=== PATIENT | female | born 1950 | race Caucasian/White ===

== ENCOUNTER 2017-02-09 14:32 | Inpatient (IN) | payer OTHER ==
[~2017-02-09] VITALS: Ht 162.6 cm; Wt 85.4 kg
[~2017-02-09 14:32] MED LIST: AMBIEN10 MG PO; ASPIR-LOW81 MG PO; ASPIRIN81 M2 PO; BENADRYL25 MG PO; BOTOX100 UNITS IJ; BUTALB-ACETAMI1 EAC2 PO; CALCIUM 500 WI1 EAC2 PO; CALCIUM 600 +1 EACH PO; CALTRATE 600 +1 EAC1 PO; CALTRATE 600600 MG PO; CELEXA40 MG PO; COLACE100 MG PO; CYMBALTA20 MG PO; DICLOFENAC POTA50 MG PO; EXCEDRIN MIGRA1 EAC3 PO; FAMOTIDINE20 MG PO; FIORICET 50-301 EACH PO; IRON325 MG PO; LIPITOR20 MG PO; LITE COAT ASPI325 M1 PO; LOPID600 MG PO; LORTAB 5-325 M1 EACH PO; MELOXICAM15 MG PO; METOPROLOL SUCC25 MG PO; MYSOLINE250 MG PO; NORVASC10 MG PO; NORVASC5 MG PO; PANTOPRAZOLE SO40 MG PO; PERCOCET 5/31 TABLET PO; PLAVIX75 MG PO; PRAVASTATIN SOD80 MG PO; PROTONIX40 MG PO; ROXICODONE5 MG PO; SENNA-TIME S T1 EACH PO; SENTRA AM CAPS1 EACH PO; TOPAMAX50 MG PO; TOPIRAMATE50 MG PO; TOPROL XL25 MG PO; TRAZODONE HCL50 MG PO; WELCHOL625 MG PO
[2017-02-09 15:21] LABS: MCH 31.6 PG (29.0-34.0); MCHC 32.5 G/DL (30.0-36.0); MCV 97.3 FL (83-99); MEAN PLAT.VOLUME 10.6 uM^3 (9.5-12.4); PLATELET COUNT 191 K/uL (156-360); RBC DIS.WIDTH-CV 14.5 % (11.8-14.6); RBC DIS.WIDTH-SD 52.3 % (39-53); RED BLOOD COUNT 4.11 M/uL (3.80-5.20)
[2017-02-09 15:31] LABS: CHLORIDE 107 mEq/L (99-109); POTASSIUM 3.8 mEq/L (3.7-5.4); SODIUM 139 mEq/L (136-147)
[2017-02-09 15:33] LABS: GLUCOSE 183 mg/dL (70-99)
[2017-02-09 15:34] LABS: ANION GAP 16 MEQ/L (2-14)
[2017-02-09 15:37] LABS: GFR ESTIMATE (CALCULATED) > 59 mL/min/
[2017-02-09 15:38] LABS: UREA NITROGEN (BUN) 12 mg/dL (9-23)
[2017-02-09 17:31] LABS: TROP-I INTERPRETATION NEGATIVE; TROPONIN-I < 0.01 ng/mL (0.0-0.30)
[2017-02-09] MEDS ORDERED: PROTONIX40 MG PO (17:32)
[2017-02-09] MEDS ORDERED: NUEDEXTA 20-101 EACH PO (17:33)
[2017-02-09] MEDS ORDERED: PLAVIX75 MG PO (17:33)
[2017-02-09] MEDS ORDERED: CRESTOR5 MG PO (17:34)
[2017-02-09] MEDS ORDERED: FIORICET 50-301 EACH PO (17:35)
[2017-02-09] MEDS ORDERED: B-121000 MC2 PO (17:35)
[2017-02-09] MEDS ORDERED: DESYREL100 MG PO (17:36)
[2017-02-09 20:05] VITALS: BP 141/66
[2017-02-09 23:26] LABS: TROP-I INTERPRETATION NEGATIVE; TROPONIN-I < 0.01 ng/mL (0.0-0.30)
[2017-02-10] VITALS (7 sets, daily range): BP systolic 118–176; BP diastolic 58–83
[2017-02-10 06:19] LABS: HEMATOCRIT 36.3 % (36.0-46.0); MCH 31.8 PG (29.0-34.0); MCV 99.5 FL (83-99); MEAN PLAT.VOLUME 10.7 uM^3 (9.5-12.4); PLATELET COUNT 171 K/uL (156-360); RBC DIS.WIDTH-CV 14.6 % (11.8-14.6); RBC DIS.WIDTH-SD 53.7 % (39-53); RED BLOOD COUNT 3.65 M/uL (3.80-5.20); WHITE BLOOD COUNT 9.5 K/uL (4.1-10.2)
[2017-02-10 06:34] LABS: TROP-I INTERPRETATION NEGATIVE; TROPONIN-I < 0.01 ng/mL (0.0-0.30)
[2017-02-10 06:46] LABS: ANION GAP 10 MEQ/L (2-14); CHLORIDE 110 MEQ/L (99-109); GFR ESTIMATE (CALCULATED) > 59 mL/min/; GLUCOSE 131 mg/dL (70-99); SAMPLE HEMOLYSIS CHECK 0; SAMPLE ICTERIC CHECK 0; SAMPLE LIPEMIA CHECK 0; SODIUM 140 MEQ/L (136-147); UREA NITROGEN (BUN) 11 mg/dL (9-23)
[2017-02-10 17:55] LABS: TROP-I INTERPRETATION NEGATIVE; TROPONIN-I < 0.01 ng/mL (0.0-0.30)
[2017-02-11 00:16] LABS: CHLORIDE 112 mEq/L (99-109); POTASSIUM 3.6 mEq/L (3.7-5.4); SODIUM 140 mEq/L (136-147)
[2017-02-11 00:17] LABS: GLUCOSE 155 mg/dL (70-99)
[2017-02-11 00:19] LABS: ANION GAP 12 MEQ/L (2-14)
[2017-02-11 00:21] LABS: GFR ESTIMATE (CALCULATED) > 59 mL/min/
[2017-02-11 00:22] LABS: UREA NITROGEN (BUN) 10 mg/dL (9-23)
[2017-02-11 01:48] VITALS: BP 148/80
[2017-02-11 06:19] VITALS: BP 137/69
[2017-02-11 07:30] VITALS: BP 180/82
[2017-02-11 11:22] VITALS: BP 158/72
[2017-02-11 15:50] VITALS: BP 148/64
[2017-02-11 23:06] VITALS: BP 143/63
[2017-02-12 04:17] LABS: ADD MIUA? YES; BILIRUBIN NEGATIVE; BLOOD MODERATE; COLOR YELLOW ((YELLOW)); GLUCOSE (STRIP) NEGATIVE; KETONES NEGATIVE; LEUKOCYTES TRACE; NITRITE NEGATIVE; PROTEIN (STRIP) NEGATIVE; SPECIFIC GRAVITY 1.016 (1.000-1.030); UROBILINOGEN 0.2 MG/DL (0.2-1.0)
[2017-02-12 04:44] LABS: RED BLOOD CELLS 15-20 /HPF (0-5)
[2017-02-12 04:45] LABS: BACTERIA 1+ /HPF; CASTS PRESENT /LPF; CRYSTALS NONE SEEN; EPITHELIAL CELLS 1+ /HPF; MUCUS 1+ /LPF
[2017-02-12 04:47] LABS: HYALINE CASTS RARE /LPF
[2017-02-12 07:07] LABS: ANION GAP 10 MEQ/L (2-14); CHLORIDE 109 MEQ/L (99-109); GFR ESTIMATE (CALCULATED) > 59 mL/min/; GLUCOSE 142 mg/dL (70-99); POTASSIUM 4.1 MEQ/L (3.7-5.4); SAMPLE HEMOLYSIS CHECK 0; SAMPLE ICTERIC CHECK 0; SAMPLE LIPEMIA CHECK 0; SODIUM 141 MEQ/L (136-147); UREA NITROGEN (BUN) 6 mg/dL (9-23)
[2017-02-12 07:10] VITALS: BP 170/77
[2017-02-12 15:25] VITALS: BP 180/81
[2017-02-12 23:17] VITALS: BP 185/85
[2017-02-13 06:28] VITALS: BP 160/100
[2017-02-13 08:21] VITALS: BP 156/76
[2017-02-13 16:34] VITALS: BP 149/69
[2017-02-13 23:06] VITALS: BP 169/78
[2017-02-14 07:31] VITALS: BP 172/79
[2017-02-14 16:21] VITALS: BP 187/79
[2017-02-15] VITALS: BP 173/79
[2017-02-15 06:17] LABS: HEMATOCRIT 38.2 % (36.0-46.0); MCH 31.2 PG (29.0-34.0); MCHC 31.2 G/DL (30.0-36.0); MEAN PLAT.VOLUME 10.2 uM^3 (9.5-12.4); PLATELET COUNT 215 K/uL (156-360); RBC DIS.WIDTH-CV 14.7 % (11.8-14.6); RBC DIS.WIDTH-SD 54.6 % (39-53); RED BLOOD COUNT 3.82 M/uL (3.80-5.20); WHITE BLOOD COUNT 8.1 K/uL (4.1-10.2)
[2017-02-15 06:48] LABS: ANION GAP 10 MEQ/L (2-14); CHLORIDE 106 MEQ/L (99-109); GFR ESTIMATE (CALCULATED) > 59 mL/min/; GLUCOSE 132 mg/dL (70-99); POTASSIUM 4.1 MEQ/L (3.7-5.4); SAMPLE HEMOLYSIS CHECK 0; SAMPLE ICTERIC CHECK 0; SAMPLE LIPEMIA CHECK 0; SODIUM 140 MEQ/L (136-147); UREA NITROGEN (BUN) 15 mg/dL (9-23)
[2017-02-15 08:37] VITALS: BP 157/71
[2017-02-15] MEDS ORDERED: ADVAIR HFA120 INHALA IH (12:49)
== END 2017-02-15 15:17 | DRG 190 ==
LOC: EME 14:32 → EDOF 17:01 → 5EAST 17:01 → ENRESERV 17:07 → 5EAST 19:48
PROVIDERS: Emergency Medicine; Family Medicine; Hospitalist; Internal Medicine
DX: J44.1 Chronic obstructive pulmonary disease with (acute) exacerbation (principal); G93.49 Other encephalopathy; T17.820A Food in other parts of respiratory tract causing asphyxiation, initial encounter; I67.3 Progressive vascular leukoencephalopathy; I69.351 Hemiplegia and hemiparesis following cerebral infarction affecting right dominant side; F33.9 Major depressive disorder, recurrent, unspecified; J98.11 Atelectasis; F05 Delirium due to known physiological condition; J44.0 Chronic obstructive pulmonary disease with (acute) lower respiratory infection; J20.9 Acute bronchitis, unspecified; R13.10 Dysphagia, unspecified; E78.5 Hyperlipidemia, unspecified; I10 Essential (primary) hypertension; E87.6 Hypokalemia; G43.909 Migraine, unspecified, not intractable, without status migrainosus; F02.80 Dementia in other diseases classified elsewhere, unspecified severity, without behavioral disturbance, psychotic disturbance, mood disturbance, and anxiety; F41.9 Anxiety disorder, unspecified; G40.909 Epilepsy, unspecified, not intractable, without status epilepticus; E66.9 Obesity, unspecified; R45.1 Restlessness and agitation; F60.0 Paranoid personality disorder; I27.29 Other secondary pulmonary hypertension; I34.0 Nonrheumatic mitral (valve) insufficiency; Z88.5 Allergy status to narcotic agent; Z88.1 Allergy status to other antibiotic agents; I69.391 Dysphagia following cerebral infarction; Z87.11 Personal history of peptic ulcer disease; Z87.440 Personal history of urinary (tract) infections; Z68.32 Body mass index [BMI] 32.0-32.9, adult
CPT/HCPCS: 71010; 71020; 71275; 74230; 80048; 80048 91; 81003; 83605; 83880; 84484; 85027; 85379; 87040; 87493; 92526 GN; 92610 GN; 92611 GN; 93005; 94640; 94640 76; 94760; 94799; 97530 GO; 99202; 99281; 99284; J0456; J1650; J1885; J1956; J2930; J7030; J7042; S0028

== ENCOUNTER → 2017-03-02 | Outpatient (CLI) | payer OTHER ==
[~2017-03-02] MED LIST changes: +ADVAIR HFA120 INHALA IH; +B-121000 MC2 PO; +CRESTOR5 MG PO; +DESYREL100 MG PO; +NUEDEXTA 20-101 EACH PO
== END ==
LOC: RAD 15:00
DX: R13.13 Dysphagia, pharyngeal phase (principal); R13.11 Dysphagia, oral phase
CPT/HCPCS: 74230; 92611 GN; G8996 GN CJ; G8997 GN CJ; G8998 GN CJ

== ENCOUNTER 2017-05-16 11:43 | Observation (INO) | payer OTHER ==
[~2017-05-16] VITALS: Ht 160 cm; Wt 96.9 kg
[2017-05-16] MEDS ORDERED: NAMENDA5 MG PO (17:07)
[2017-05-16] MEDS ORDERED: CRESTOR20 MG PO (17:10)
[2017-05-16] MEDS ORDERED: OCEAN NASAL 0.645 ML BOTH NARES (17:11)
[2017-05-16] MEDS ORDERED: ADVAIR 250/501 DISK IH (17:11)
[2017-05-16 18:01] LABS: CHLORIDE 107 mEq/L (99-109); POTASSIUM 3.9 mEq/L (3.7-5.4); SODIUM 139 mEq/L (136-147)
[2017-05-16 18:02] LABS: GLUCOSE 171 mg/dL (70-99)
[2017-05-16 18:06] LABS: CREATININE 0.8 mg/dL (0.6-1.3); GFR ESTIMATE (CALCULATED) > 59 mL/min/
[2017-05-16 18:07] LABS: UREA NITROGEN (BUN) 12 mg/dL (9-23)
[2017-05-16 18:09] LABS: CREATINE KINASE 43 IU/L (1-294)
[2017-05-16 19:52] VITALS: BP 139/64
[2017-05-17 09:40] VITALS: BP 112/69
[2017-05-17 11:34] VITALS: BP 139/67
[2017-05-17 15:24] VITALS: BP 142/67
[2017-05-17 19:00] VITALS: BP 123/68
[2017-05-18] VITALS: BP 138/74
[2017-05-18 04:00] VITALS: BP 160/76
[2017-05-18 07:25] VITALS: BP 176/83
[2017-05-18 10:38] LABS: HEMATOCRIT 38.9 % (36.0-46.0); HEMOGLOBIN 12.7 G/DL (11.9-15.5); MCH 31.8 PG (29.0-34.0); MCHC 32.6 G/DL (30.0-36.0); MCV 97.5 FL (83-99); PLATELET COUNT 188 K/uL (156-360); RBC DIS.WIDTH-CV 14.8 % (11.8-14.6); RBC DIS.WIDTH-SD 53.1 % (39-53); RED BLOOD COUNT 3.99 M/uL (3.80-5.20); WHITE BLOOD COUNT 9.1 K/uL (4.1-10.2)
[2017-05-18 11:03] LABS: CHLORIDE 104 MEQ/L (99-109); CREATININE 0.7 MG/DL (0.6-1.3); GFR ESTIMATE (CALCULATED) > 59 mL/min/; GLUCOSE 181 mg/dL (70-99); POTASSIUM 4.4 MEQ/L (3.7-5.4); SODIUM 136 MEQ/L (136-147); UREA NITROGEN (BUN) 17 mg/dL (9-23)
[2017-05-18 11:46] VITALS: BP 159/80
[2017-05-18 16:15] VITALS: BP 148/65
[2017-05-18 20:00] VITALS: BP 182/98
[2017-05-19 01:46] VITALS: BP 190/93
[2017-05-19 07:58] VITALS: BP 174/90
[2017-05-19 10:04] LABS: HEMATOCRIT 40.8 % (36.0-46.0); HEMOGLOBIN 13.4 G/DL (11.9-15.5); MCH 31.8 PG (29.0-34.0); MCHC 32.8 G/DL (30.0-36.0); MCV 96.7 FL (83-99); PLATELET COUNT 242 K/uL (156-360); RBC DIS.WIDTH-CV 15.1 % (11.8-14.6); RBC DIS.WIDTH-SD 53.1 % (39-53); RED BLOOD COUNT 4.22 M/uL (3.80-5.20); WHITE BLOOD COUNT 12.6 K/uL (4.1-10.2)
[2017-05-19 10:18] LABS: CHLORIDE 105 MEQ/L (99-109); CREATININE 0.7 MG/DL (0.6-1.3); GFR ESTIMATE (CALCULATED) > 59 mL/min/; GLUCOSE 208 mg/dL (70-99); POTASSIUM 4.2 MEQ/L (3.7-5.4); SODIUM 138 MEQ/L (136-147); UREA NITROGEN (BUN) 17 mg/dL (9-23)
[2017-05-19 11:03] LABS: APPEARANCE CLEAR ((CLEAR)); BILIRUBIN NEGATIVE; BLOOD LARGE; COLOR YELLOW ((YELLOW)); GLUCOSE (STRIP) NEGATIVE; KETONES NEGATIVE; LEUKOCYTES NEGATIVE; NITRITE NEGATIVE; PROTEIN (STRIP) 100; SPECIFIC GRAVITY 1.016 (1.000-1.030); UROBILINOGEN 0.2 MG/DL (0.2-1.0)
[2017-05-19 11:12] LABS: BACTERIA NONE SEEN /HPF; EPITHELIAL CELLS RARE /HPF; MUCUS TRACE /LPF; RED BLOOD CELLS TNTC /HPF (0-5); UCUL ADDED? YES; WHITE BLOOD CELLS 0-5 /HPF (0-5)
[2017-05-19 11:25] VITALS: BP 133/61
[2017-05-19] MEDS ORDERED: ULTRAM50 MG PO (16:35)
== END 2017-05-19 14:21 ==
LOC: EME 11:43 → EDOF 16:22 → 5WEST 16:22 → ENRESERV 16:30 → 5WEST 17:58
PROVIDERS: Internal Medicine; Nurse Practitioner Family
PROC: 2W3RX2Z Immobilization of Left Lower Leg using Cast (ICD-10-PCS; principal; 2017-05-18)
DX: S82.832A Other fracture of upper and lower end of left fibula, initial encounter for closed fracture (principal); R26.89 Other abnormalities of gait and mobility; I10 Essential (primary) hypertension; E78.5 Hyperlipidemia, unspecified; I69.351 Hemiplegia and hemiparesis following cerebral infarction affecting right dominant side; D72.829 Elevated white blood cell count, unspecified; R44.3 Hallucinations, unspecified; R33.9 Retention of urine, unspecified; Z87.440 Personal history of urinary (tract) infections; F32.9 Major depressive disorder, single episode, unspecified; G43.909 Migraine, unspecified, not intractable, without status migrainosus; G40.909 Epilepsy, unspecified, not intractable, without status epilepticus; Z87.11 Personal history of peptic ulcer disease; G89.29 Other chronic pain; F41.9 Anxiety disorder, unspecified; Z88.1 Allergy status to other antibiotic agents; Z88.5 Allergy status to narcotic agent; Z88.8 Allergy status to other drugs, medicaments and biological substances; Z91.09 Other allergy status, other than to drugs and biological substances; X50.1XXA Overexertion from prolonged static or awkward postures, initial encounter; Y93.89 Activity, other specified
CPT/HCPCS: 71046; 73610; 80048; 81003; 82550; 85027; 87040; 87086; 94640; 94640 76; 97530 GP; 99281; 99285; G0378; G8978 GP CM; G8979 GP CL; G8980 GP CM; G8987 GO CM; G8988 GO CL; G8989 GO CM; J0360; J1650

== ENCOUNTER 2017-05-19 11:13 | Inpatient (IN) | payer OTHER ==
[~2017-05-19] VITALS: Ht 160 cm; Wt 84.2 kg
[~2017-05-19 11:13] MED LIST changes: +ADVAIR 250/501 DISK IH; +CRESTOR20 MG PO; +NAMENDA5 MG PO; +OCEAN NASAL 0.645 ML BOTH NARES
[2017-05-19 14:25] VITALS: BP 121/61
[2017-05-19] MEDS ORDERED: ULTRAM50 MG PO (16:35)
[2017-05-20] VITALS: BP 124/58
[2017-05-20 00:24] VITALS: BP 144/85
[2017-05-20 05:03] VITALS: BP 128/66
[2017-05-20 05:27] LABS: HEMATOCRIT 35.3 % (36.0-46.0); HEMOGLOBIN 11.4 G/DL (11.9-15.5); MCH 31.6 PG (29.0-34.0); MCHC 32.3 G/DL (30.0-36.0); MCV 97.8 FL (83-99); PLATELET COUNT 198 K/uL (156-360); RBC DIS.WIDTH-CV 15.4 % (11.8-14.6); RBC DIS.WIDTH-SD 55.5 % (39-53); RED BLOOD COUNT 3.61 M/uL (3.80-5.20); WHITE BLOOD COUNT 9.9 K/uL (4.1-10.2)
[2017-05-20 05:57] LABS: ALBUMIN 3.6 G/DL (3.2-4.8); ALKALINE PHOSPHATASE 107 IU/L (3-129); ALT (GPT) 11 IU/L (3-49); AST (GOT) 13 IU/L (2-34); CHLORIDE 107 MEQ/L (99-109); CREATININE 0.9 MG/DL (0.6-1.3); GFR ESTIMATE (CALCULATED) > 59 mL/min/; GLUCOSE 151 mg/dL (70-99); POTASSIUM 3.8 MEQ/L (3.7-5.4); SODIUM 139 MEQ/L (136-147); TOTAL BILIRUBIN 0.3 MG/DL (0.0-1.0); TOTAL PROTEIN 7.1 G/DL (6.4-8.3)
[2017-05-20 06:00] LABS: UREA NITROGEN (BUN) 31 mg/dL (9-23)
[2017-05-20 15:00] VITALS: BP 114/61
[2017-05-21 04:17] VITALS: BP 114/56
[2017-05-21 15:21] VITALS: BP 121/60
[2017-05-22 05:34] VITALS: BP 115/56
[2017-05-22 13:36] VITALS: BP 178/86
[2017-05-22 16:22] VITALS: BP 129/59
[2017-05-23 05:28] VITALS: BP 123/58
[2017-05-23 15:10] VITALS: BP 124/60
[2017-05-24 05:57] VITALS: BP 134/62
[2017-05-24 15:41] VITALS: BP 129/60
[2017-05-25 04:34] LABS: BASOPHIL (%) 0.7 % (0-1); BASOPHIL COUNT 0.1 K/uL (0-0.1); EOSINOPHIL (%) 0 % (0-5); HEMATOCRIT 32.9 % (36.0-46.0); HEMOGLOBIN 10.4 G/DL (11.9-15.5); IMMATURE GRANULOCYTE (%) 0.4 % (0.0-0.7); LYMPHOCYTE (%) 21.9 % (15-42); LYMPHOCYTE COUNT 1.6 K/uL (1.0-2.8); MCHC 31.6 G/DL (30.0-36.0); MCV 98.2 FL (83-99); MONOCYTE COUNT 0.6 K/uL (0-0.8); NEUTROPHIL COUNT 4.8 K/uL (1.8-6.4); PLATELET COUNT 198 K/uL (156-360); RBC DIS.WIDTH-CV 14.9 % (11.8-14.6); RED BLOOD COUNT 3.35 M/uL (3.80-5.20); WHITE BLOOD COUNT 7.1 K/uL (4.1-10.2)
[2017-05-25 04:58] VITALS: BP 140/64
[2017-05-25 04:59] LABS: ALBUMIN 3.6 G/DL (3.2-4.8); ALKALINE PHOSPHATASE 114 IU/L (3-129); ALT (GPT) 13 IU/L (3-49); AST (GOT) 17 IU/L (2-34); CHLORIDE 107 MEQ/L (99-109); CREATININE 0.7 MG/DL (0.6-1.3); GFR ESTIMATE (CALCULATED) > 59 mL/min/; GLUCOSE 131 mg/dL (70-99); POTASSIUM 4.2 MEQ/L (3.7-5.4); SODIUM 140 MEQ/L (136-147); TOTAL BILIRUBIN 0.3 MG/DL (0.0-1.0); UREA NITROGEN (BUN) 19 mg/dL (9-23)
[2017-05-25 15:00] VITALS: BP 144/67
[2017-05-26 05:14] VITALS: BP 125/59
[2017-05-26 15:28] VITALS: BP 121/58
[2017-05-27 05:46] VITALS: BP 122/66
[2017-05-27 15:18] VITALS: BP 115/61
[2017-05-28 05:31] VITALS: BP 134/62
[2017-05-28 15:33] VITALS: BP 129/60
[2017-05-29 06:16] VITALS: BP 124/71
[2017-05-29 16:25] VITALS: BP 121/58
[2017-05-30 06:57] VITALS: BP 127/61
[2017-05-30 16:43] VITALS: BP 152/67
[2017-05-30 20:21] VITALS: BP 133/60
[2017-05-31 07:04] VITALS: BP 108/55
[2017-05-31 15:30] VITALS: BP 130/60
[2017-06-01 06:44] VITALS: BP 139/60
[2017-06-01 14:56] VITALS: BP 114/65
[2017-06-02 05:53] LABS: HEMATOCRIT 35.5 % (36.0-46.0); HEMOGLOBIN 10.9 G/DL (11.9-15.5); MCH 30.3 PG (29.0-34.0); MCHC 30.7 G/DL (30.0-36.0); MCV 98.6 FL (83-99); PLATELET COUNT 223 K/uL (156-360); RBC DIS.WIDTH-CV 14.7 % (11.8-14.6); RBC DIS.WIDTH-SD 54.1 % (39-53)
[2017-06-02 06:00] VITALS: BP 130/56
[2017-06-02 06:25] LABS: ALBUMIN 3.7 G/DL (3.2-4.8); ALKALINE PHOSPHATASE 121 IU/L (3-129); ALT (GPT) 16 IU/L (3-49); AST (GOT) 19 IU/L (2-34); CHLORIDE 108 MEQ/L (99-109); CREATININE 0.8 MG/DL (0.6-1.3); GFR ESTIMATE (CALCULATED) > 59 mL/min/; GLUCOSE 124 mg/dL (70-99); POTASSIUM 4.4 MEQ/L (3.7-5.4); SODIUM 141 MEQ/L (136-147); TOTAL BILIRUBIN 0.2 MG/DL (0.0-1.0); TOTAL PROTEIN 7.1 G/DL (6.4-8.3); UREA NITROGEN (BUN) 19 mg/dL (9-23)
[2017-06-02 14:54] VITALS: BP 132/80
[2017-06-02] MEDS ORDERED: FIORICET 50-301 EACH PO (18:05)
[2017-06-02] MEDS ORDERED: SENNA PLUS TAB1 EACH PO (18:05)
[2017-06-02] MEDS ORDERED: BETHANECHOL CHL25 MG PO (18:05)
[2017-06-02] MEDS ORDERED: ASPIR-LOW81 MG PO (18:05)
[2017-06-03 06:17] VITALS: BP 121/56
== END 2017-06-03 13:58 | DRG 560 ==
LOC: 3WEST 11:13 → ENPENDDIS 06-03 → 3WEST 06-03 13:58
PROVIDERS: Physical Medicine & Rehabilitation Pain Medicine; Psychiatry & Neurology Neurology
DX: S82.62XD Displaced fracture of lateral malleolus of left fibula, subsequent encounter for closed fracture with routine healing (principal); I69.351 Hemiplegia and hemiparesis following cerebral infarction affecting right dominant side; D62 Acute posthemorrhagic anemia; G89.4 Chronic pain syndrome; G40.909 Epilepsy, unspecified, not intractable, without status epilepticus; G43.909 Migraine, unspecified, not intractable, without status migrainosus; I10 Essential (primary) hypertension; N39.41 Urge incontinence; R33.9 Retention of urine, unspecified; R26.9 Unspecified abnormalities of gait and mobility; M85.80 Other specified disorders of bone density and structure, unspecified site; E78.5 Hyperlipidemia, unspecified; K59.00 Constipation, unspecified; R41.89 Other symptoms and signs involving cognitive functions and awareness; D72.829 Elevated white blood cell count, unspecified; F32.9 Major depressive disorder, single episode, unspecified; F41.9 Anxiety disorder, unspecified; Z87.11 Personal history of peptic ulcer disease; Z87.440 Personal history of urinary (tract) infections
CPT/HCPCS: 71046; 73610; 80048; 80053; 81003; 82550; 85025; 85027; 87040; 87086; 94640; 94640 76; 97110 GO; 97530 GP; 99281; 99285; G0378; G8978 GP CM; G8979 GP CL; G8980 GP CM; G8987 GO CM; G8988 GO CL; G8989 GO CM; J0360; J1650

== ENCOUNTER 2017-10-26 19:04 | Emergency (ER) | payer OTHER ==
[~2017-10-26] VITALS: Ht 160 cm; Wt 85.0 kg
[~2017-10-26 19:04] MED LIST changes: +BETHANECHOL CHL25 MG PO; +SENNA PLUS TAB1 EACH PO; +ULTRAM50 MG PO
[2017-10-26 20:17] LABS: HEMATOCRIT 37.9 % (36.0-46.0); MCHC 31.7 G/DL (30.0-36.0); MCV 94.8 FL (83-99); PLATELET COUNT 195 K/uL (156-360); RBC DIS.WIDTH-CV 14.6 % (11.8-14.6); RBC DIS.WIDTH-SD 51.2 % (39-53)
[2017-10-26 20:35] LABS: CHLORIDE 111 mEq/L (99-109); POTASSIUM 4.1 mEq/L (3.7-5.4); SODIUM 140 mEq/L (136-147)
[2017-10-26 20:37] LABS: GLUCOSE 153 mg/dL (70-99); TOTAL PROTEIN 7.8 g/dL (6.4-8.3)
[2017-10-26 20:39] LABS: TOTAL BILIRUBIN 0.2 mg/dL (0.0-1.0)
[2017-10-26 20:41] LABS: ALKALINE PHOSPHATASE 128 IU/L (3-129); CREATININE 0.9 mg/dL (0.6-1.3); GFR ESTIMATE (CALCULATED) > 59 mL/min/
[2017-10-26 20:42] LABS: UREA NITROGEN (BUN) 20 mg/dL (9-23)
[2017-10-26 20:43] LABS: AST (GOT) 17 IU/L (2-34)
[2017-10-26 20:44] LABS: ALT (GPT) 12 IU/L (3-49)
[2017-10-26 21:48] LABS: APPEARANCE CLEAR ((CLEAR)); BILIRUBIN NEGATIVE; BLOOD NEGATIVE; COLOR YELLOW ((YELLOW)); GLUCOSE (STRIP) NEGATIVE; KETONES NEGATIVE; LEUKOCYTES NEGATIVE; NITRITE POSITIVE; PROTEIN (STRIP) NEGATIVE; SPECIFIC GRAVITY 1.019 (1.000-1.030); UROBILINOGEN 0.2 MG/DL (0.2-1.0)
[2017-10-26 22:01] LABS: BACTERIA 3+ /HPF; EPITHELIAL CELLS RARE /HPF; MUCUS 1+ /LPF; RED BLOOD CELLS 0-5 /HPF (0-5); UCUL ADDED? YES
[2017-10-27] MEDS ORDERED: BACTRIM,SEPT1 TABLET PO (01:33)
[2017-10-27] MEDS ORDERED: LIDODERM 5% P1 PATCH TD (01:33)
[2017-10-27] MEDS ORDERED: PERCOCET 5/31 TABLET PO (01:33)
[2017-10-27 01:47] VITALS: BP 137/81
== END 2017-10-27 01:53 | disposition home or self-care (01) ==
LOC: EME 19:04 → EXP 19:04
PROC: 0T9B70Z Drainage of Bladder with Drainage Device, Via Natural or Artificial Opening (ICD-10-PCS; principal; 2017-10-26)
DX: N39.0 Urinary tract infection, site not specified (principal); B96.1 Klebsiella pneumoniae [K. pneumoniae] as the cause of diseases classified elsewhere; M48.56XA Collapsed vertebra, not elsewhere classified, lumbar region, initial encounter for fracture; S09.90XA Unspecified injury of head, initial encounter; Z79.02 Long term (current) use of antithrombotics/antiplatelets; W18.30XA Fall on same level, unspecified, initial encounter; W22.01XA Walked into wall, initial encounter; R94.02 Abnormal brain scan; R93.7 Abnormal findings on diagnostic imaging of other parts of musculoskeletal system; I10 Essential (primary) hypertension; E78.5 Hyperlipidemia, unspecified; R56.9 Unspecified convulsions; G43.909 Migraine, unspecified, not intractable, without status migrainosus; F41.9 Anxiety disorder, unspecified; F32.9 Major depressive disorder, single episode, unspecified; Z79.51 Long term (current) use of inhaled steroids; Z86.73 Personal history of transient ischemic attack (TIA), and cerebral infarction without residual deficits; Z98.890 Other specified postprocedural states; Z90.49 Acquired absence of other specified parts of digestive tract; Z88.8 Allergy status to other drugs, medicaments and biological substances; Z88.5 Allergy status to narcotic agent; Z88.1 Allergy status to other antibiotic agents
CPT/HCPCS: 70450; 72148; 80053; 81003; 85027; 87077; 87086; 87186; 99281; 99283; J3010